=== PATIENT | female | born 1950 | race Caucasian/White ===

== ENCOUNTER 2016-07-01 15:57 | Emergency (ER) | payer SELFPAY ==
[2016-07-01 16:09] VITALS: BP 117/66; PULSE 104; TEMP 98; BMI 28.3
[2016-07-01] MEDS ORDERED: KETOROLAC TROMETHAMINE 30 MG/1 ML VIAL IM ONE (16:53)
[2016-07-01] MEDS ORDERED: KETOROLAC TROMETHAMINE 30 MG/1 ML VIAL ONE (16:56)
--- NOTE | 2016-07-01 16:56 | PDOC ---
History of Present Illness - General Chief Complaint: RX Refill Stated Complaint: ARTHRISTIS Time Seen by Provider: 07/01/16 16:17 - History of Present Illness Initial Comments: 07/01/16 17:09 CHIEF COMPLAINT: ran out of medication HISTORY OF PRESENT ILLNESS: 65 yo F with hx of rheumatoid arthritis presents to [facility] today to refill prescription medications because she ran out of insurance a month ago. Patient requests omeprazole and prednisone. No recent travel or sick contacts. PAST MEDICAL HISTORY: Denies past medical history FAMILY HISTORY: Denies SOCIAL HISTORY: Denies tobacco, alcohol, illicit drug use. SURGICAL HISTORY: Denies ALLERGIES: No known drug allergies REVIEW OF SYSTEMS General/Constitutional: Denies fever or chills. Denies weakness, weight change. HEENT: Denies change in vision. Denies ear pain or discharge. Denies sore throat. Cardiovascular: Denies chest pain or shortness of breath. Respiratory: Denies cough, wheezing, or hemoptysis. Gastrointestinal: Denies nausea, vomiting, diarrhea or constipation. Denies rectal bleeding. Genitourinary: Denies dysuria, frequency, or change in urination. Musculoskeletal: Chronic pain to R knee. Denies joint or muscle swelling or pain. Denies neck or back pain. PHYSICAL EXAM General Appearance: Well-appearing, appropriately dressed. No apparent distress , no intoxication. HEENT: EOMI, PERRLA, normal ENT inspection, normal voice, TMs normal, pharynx normal. No conjunctival pallor. No photophobia, scleral icterus. Respiratory/Chest: Lungs CTAB. Cardiovascular: RRR. S1, S2. Musculoskeletal/Extremities: Normal inspection. FROM of all extremities, normal capillary refill. Pelvis Stable. No CVA tenderness. No tenderness to extremities, pedal edema, swelling, erythema or deformity. Integumentary: Appropriate color, dry, warm. No cyanosis, erythema, jaundice or rash Neurologic: electrician office II-XII intact. Fully oriented, alert. Appropriate mood/affect. Motor strength 5/5. No appreciable EOM palsy, facial droop or sensory deficit. Past History - Past Medical History Allergies/Adverse Reactions: Allergies Allergy/AdvReac Type Severity Reaction Status Date / Time No Known Allergies Allergy Unverified 07/01/16 16:01 Home Medications: Ambulatory Orders Folic Acid - 1 mg PO DAILY 07/01/16 Omeprazole 20 mg PO DAILY #7 capsule.dr 07/01/16 Prednisone 5 mg PO DAILY #7 tablet 07/01/16 Sulfasalazine 500 mg PO ASDIR 07/01/16 Sulindac 150 mg PO ASDIR 07/01/16 Other medical history: R.Arithritis - Surgical History Abdominal Surgery: Yes (COLON POLYPS) - Psycho/Social/Smoking Cessation Hx Anxiety: No Suicidal Ideation: No Smoking History: Never smoked Have you smoked in the past 12 months: No Information on smoking cessation initiated: No Hx Alcohol Use: No Drug/Substance Use Hx: No Substance Use Type: None *Physical Exam - Vital Signs Last Vital Signs Temp Pulse Resp BP Pulse Ox 98.0 F 104 H 18 117/66 100 07/01/16 16:03 07/01/16 16:03 07/01/16 16:03 07/01/16 16:03 07/01/16 16:03 *DC/Admit/Observation/Transfer Diagnosis at time of Disposition: Medical care unavailable, Difficulty refilling prescriptions - Discharge Dispostion Admit: No - Prescriptions Prescriptions: Omeprazole 20 mg PO DAILY #7 capsule. Prednisone 5 mg PO DAILY #7 tablet - Referrals Referrals: Bebe Hurley MD [Staff Physician] - [facility] [Provider Group] - Patient Instructions Printed Discharge Instructions: How to Refill a Prescription Additional Instructions: As discussed, you need to follow up with a primary care doctor for continued refill of your prescriptions. You may go to the [facility] to get continuing care. I have give you a referral. If you experience any shortness of breath, chest pain, headache, palpitations, or any new or worsening symptoms, please return to the ER. Tomas se discuti, usted necesita seguir con un mdico de atencin primaria para el relleno continuo de consuelo recetas. Usted puede ir a la [facility] para recibir cuidado continuo. Te he dado melva referencia. Si experimenta dificultad para respirar, dolor de pecho, dolor de gael, palpitaciones o cualquier sntoma nuevo o que empeora, por favor regrese a la harley de emergencias. Print Language: [place]
== END 2016-07-01 17:05 | disposition home or self-care (01) ==
LOC: JERFT 15:57
PROC: 3E0233Z Introduction of Anti-inflammatory into Muscle, Percutaneous Approach (ICD-10-PCS; principal; 2016-07-01)
DX: M06.861 Other specified rheumatoid arthritis, right knee (principal)
CPT/HCPCS: 99281-25